=== PATIENT | female | born 1990 | race Native Hawaiian/Other Pacific Islander ===

== ENCOUNTER 2020-04-26 09:30 | Outpatient (RCR) | payer OTHER, SELFPAY ==
[2020-03-21 11:38] VITALS: BP 110/69; PULSE 65
[2020-04-05 12:41] VITALS: BP 119/72; PULSE 85
[2020-04-19 09:16] VITALS: BP 111/71; PULSE 99
[2020-04-26 10:10] VITALS: BP 122/72; PULSE 85
== END 2020-05-09 07:54 | disposition home or self-care (01) ==
LOC: ANHOBOP 09:30
PROVIDERS: PCP Physician Assistant; Visit Provider Obstetrics & Gynecology
DX: O26.893 Other specified pregnancy related conditions, third trimester (principal); R03.0 Elevated blood-pressure reading, without diagnosis of hypertension; Z3A.32 32 weeks gestation of pregnancy
CPT/HCPCS: 59025

== ENCOUNTER 2020-05-04 10:15 | Outpatient (CLI) | payer OTHER, SELFPAY ==
[2020-05-04 10:45] LABS: Hematocrit 33.2 % (37.0-47.0); Hemoglobin 10.7 g/dL (12.0-15.0); Mean Corpuscular HGB Conc 32.2 g/dl (32-36); Mean Corpuscular Hemoglobin 25.9 pg (26-34); Mean Corpuscular Volume 80.4 fl (80-100); Mean Platelet Volume 9.2 fl (7.4-10.4); Platelet Count Result 267 k/mm3 (150-375); Red Blood Count 4.13 M/mm3 (4.2-5.4); Red Cell Distribution Width 13.4 % (11.5-14.5); White Blood Count 8.4 K/mm3 (4.5-10.0)
[2020-05-05 11:13] LABS: Rapid Plasma Reagin Non-Reactive (NonReactive)
== END 2020-05-04 10:16 | disposition home or self-care (01) ==
PROVIDERS: PCP Physician Assistant; Visit Provider Obstetrics & Gynecology
DX: Z34.93 Encounter for supervision of normal pregnancy, unspecified, third trimester (principal); Z3A.00 Weeks of gestation of pregnancy not specified
CPT/HCPCS: 36415; 85027; 86592; 86850; 86900; 86901

== ENCOUNTER 2020-05-05 08:28 | Inpatient (IN) | payer OTHER, SELFPAY ==
--- NOTE | 2020-04-28 12:55 | PC.NURSE ---
VERIFIED WITH OR SCHEDULE AND PATIENT --C/S ON 05/05/20 AT 1030. HOME TSTATES SHE IS HAVING A TUBAL LIGATION WITH THE C/S--CONSENTS SIGNED PATIENT GIVEN REQUISITION FOR LAB DRAW ON 05/04/20
[2020-05-05] VITALS (45 sets, daily range): BP systolic 92–110; BP diastolic 48–69; PULSE 51–89; RESP 16–22; TEMP 36.4–37; O2SAT 80–100; BMI 40.7
[2020-05-05] MEDS: LACTATED RINGERS 1,000 ML 125 ML IV CONT ×2 (09:07→10:03)
--- NOTE | 2020-05-05 09:13 | LDADM ---
This patient, Kailey Gill, was admitted to Labor/Delivery/Recovery 120 on 05/05/20 at 08:28. Plans for labor, pain management and were discussed with patient. Patient/family oriented to hospital policies and general routines including ID bracelet, bed and alarms, visiting hours, pain management, procedures, bathroom and other care routines, personal items, smoking policy, room service/diet and guest tray routines, infant security routines, and visiting hours. Patient/Family are encouraged to report perceived risks to care and to ask questions if they do not understand what they are told or what they should do. See OBIX for further documentation.
--- NOTE | 2020-05-05 09:23 | WPDANESEPPF ---
Anes - Initial Pre Proc Eval Procedure: Operation Date: 05/05/20 10:30 Proposed Procedures p Repeat Section - Gordon Toscano MD Date/Time: 05/05/20 09:23 Surgeon: Gordon Toscano MD Pre Op Diagnosis: C/S Patient Data Age: 29 Gender: F Height: 1.7 m Weight: 118 kg Last Vital Signs Pulse 83 05/05/20 09:16 BP 110/60 05/05/20 09:16 Allergies Allergy/AdvReac Type Severity Reaction Status Date / Time acetaminophen [From Percocet] AdvReac Nausea and Verified 04/28/20 12:40 Vomiting oxycodone [From Percocet] AdvReac Nausea and Verified 04/28/20 12:40 Vomiting Home Medications Medication Instructions Recorded Confirmed Type labetalol 200 mg PO Q12H 04/28/20 04/28/20 History Patient hx anesthesia problems: none Family hx anesthesia problems: none PMFSH Past Medical History Medical History (Updated 05/03/20 @ 13:39 by Narendra Justice DO) Hypertension Surgical History Surgical History (Updated 05/03/20 @ 13:39 by Narendra Justice DO) History of x2 Family History Family History (Updated 04/28/20 @ 12:43 by Charlie Saunders RN) Grandparent Diabetes mellitus Cerebrovascular accident Heart attack Mother Diabetes mellitus Social History Social History Smoking status: Never smoker Substance use: never Spiritual care concerns: No Anes - Eval Final PreProcedure Day of Procedure 05/05/20 09:23 Patient weight: obese Heart: regular rate and rhythm Lungs: clear to auscultation and normal air movement Airway: Mallampati scale class II Neurological: alert and oriented Last oral intake: >/= 8 hours ASA classification: II Emergent: no Anesthetic plan: proceed Anesthesia type and monitoring: regional spinal Informed Consent: The patient's anesthetic plan and its attendant risks and benefits were discussed with the patient/family/POA. Questions were solicited and answers provided to the satisfaction of the patient/family/POA.
--- NOTE | 2020-05-05 10:31 | PM.IMHP ---
H&P: HPI History of Present Illness Date/Time: 05/05/20 10:31 Chief Complaint: Here for c section Narrative: 29 y/o at 39 weeks with prior , desiring repeat. Also would like permanent contraception. Chronic HTN, well-controlled. GBS neg. Review of Systems Review of Systems: All systems reviewed & are unremarkable except as noted in HPI and below PMFSH Past Medical History Medical History Hypertension Surgical History Surgical History History of x2 Family History Family History Grandparent Diabetes mellitus Cerebrovascular accident Heart attack Mother Diabetes mellitus Social History Social History Smoking status: Never smoker Substance use: never Spiritual care concerns: No Meds Home Medications and Allergies Home Medications Medication Instructions Recorded Confirmed Type labetalol 200 mg PO Q12H 04/28/20 04/28/20 History Allergies Allergy/AdvReac Type Severity Reaction Status Date / Time acetaminophen [From Percocet] AdvReac Nausea and Verified 04/28/20 12:40 Vomiting oxycodone [From Percocet] AdvReac Nausea and Verified 04/28/20 12:40 Vomiting Vital Signs Vital Signs - 24 hr 05/05/20 09:06 05/05/20 09:16 05/05/20 09:31 Temperature Pulse Rate 82 83 85 Blood Pressure 108/67 110/60 107/66 05/05/20 10:00 Temperature 36.6 C Pulse Rate Blood Pressure Exam Const: Orientation/consciousness: patient oriented x3 Other: Well-developed, well-nourished female in no acute distress. Neck: Thyroid: thyroid normal Lymphatic: no lymphadenopathy noted (in neck, axilla or inguinal nodes) Resp: Effort & Inspection: normal respiratory effort Auscultation: clear to auscultation bilaterally Cardio: Rate: regular rate Rhythm: regular rhythm Heart sounds: S1 normal heart sound present and S2 normal heart sound present GI: Other: ABD: Soft, nontender, nondistended, gravid. NST reactive. TOCO: no contractions. No guarding or rebound tenderness. No hepatosplenomegaly. : General: Yes no CVA tenderness Other: Cervix closed, thick. Back/Spine/Pelvis: Back: no CVA tenderness Skin: General skin exam: normal color and no rashes or lesions noted Neuro: General: patient oriented x3 Extrem: Other: Extremities: nontender with no edema Psych: Mental Status: mental status grossly normal Affect: normal affect Assessment and Plan Assessment and plan (1) History of : Code(s): Z98.891 - History of uterine scar from previous surgery Status: Inactive Assessment and Plan: 1) IUP at 39 weeks 2) Prior 3) Chronic HTN 4) Desired sterility Offered repeat . She understands there are temporary methods of contraception available to her. She understands that there are nonsurgical options as well as surgical options. She understands that tubal ligation will render her permanently sterile. She understands that there is a failure rate associated with tubal ligation, as well as an inherent ectopic gestation risk. Furthermore, she understands risks of surgery to include risks of anesthesia, risks of pain, infection, bleeding, blood products, thromboembolic phenomena and damage to adjacent structures such as bowel, bladder, ureters, blood vessels and nerves. She understands all these risks and elects to proceed with surgery. She has received the [employer]COG pamphlet on surgical sterilization. Plan repeat LTCS with concurrent bilateral tubal ligation. (2) Unwanted fertility: Code(s): Z30.09 - Encounter for other general counseling and advice on contraception Status: Acute (3) Chronic hypertension affecting : Code(s): O10.919 - Unspecified pre-existing hypertension
--- NOTE | 2020-05-05 10:35 | WPDHPUPDATE1 ---
History and Physical Update Update Date/Time: 05/05/20 10:35 History and Physical has been reviewed, including an updated exam of the patient. There are NO changes in the patient's condition. Risks, benefits, and alternatives have been discussed and questions answered. Patient agrees to proceed with procedure.
--- NOTE | 2020-05-05 11:37 | PM.OBPRVD ---
OB - Delivery Note Procedure Delivery date: 05/05/20 Procedure: Procedures Operation Date: 05/05/20 10:30 <No data on this case meets the specified criteria> Repeat low transverse delivery with bilateral tubal ligation Delivery monitor: external FHT and external uterine Route of delivery: (LTCS) Specimen: Yes (cord blood, segments of bilateral Fallopian tubes) Quantitative Blood Loss (ml): 705 Anesthesia type: Spinal Disposition: PACU Complications: None Narrative: The patient was taken to the operating room where she was prepared and draped in the usual sterile fashion in dorsal supine position with a leftward tilt. She received cefazolin preoperatively. Spinal anesthesia was found to be adequate. A Pfannenstiel skin incision was made along the previous scar line and was carried through to the underlying layer of the fascia. The fascia was incised in the midline and the incision was extended laterally. The fascia was dissected free of the underlying rectus muscles. The rectus muscles were in the midline. The peritoneum was identified, tented up and entered sharply. The peritoneal incision was extended superiorly and inferiorly with good visualization of the bladder. The bladder blade was placed. The vesicouterine peritoneum was identified, tented up and entered sharply. The incision was extended laterally and the bladder flap was developed. The bladder blade was replaced. The uterus was then incised sharply in a transverse fashion along the lower uterine segment. The incision was extended laterally. The infant's head was delivered atraumatically to the sterile field, followed by the body. The nose and mouth were bulb suctioned. After a delay, the cord was clamped and cut. The was handed off the field. Cord blood was collected. The placenta was removed manually and was passed off the field. The uterus was exteriorized and cleared of all clots and debris. The uterine incision was reapproximated using 0 Monocryl in a running, locked fashion. Excellent hemostasis resulted as did excellent reapproximation of the normal anatomy. The left fallopian tube was then identified by following it out to the fimbriated end. It was grasped in the midportion with a Teresa clamp and a loop of tube was ligated with a free tie of 0 plain gut. The tubal segment was then transected and the specimen was passed off to be sent to pathology. Hemostasis was excellent. Attention was turned to the right fallopian tube which was similarly identified, ligated and transected. Once again, excellent hemostasis resulted. The uterus was returned the abdomen. The pelvis was irrigated copiously with warmed normal saline. Rigorous hemostasis was assured. The fascial layer was reapproximated using 0 Vicryl in a running fashion. The skin was closed with a running, subcuticular stitch of 4 0 Vicryl. Dermaflex was applied externally. Sponge, lap, needle and instrument counts were correct. The patient was taken to the recovery room in stable condition. The went to the nursery in stable condition. I was present and scrubbed the entire procedure. Baby Date of : 05/05/20 Time of : 11:02 Weeks of gestation at delivery: 39 gender: Female Weight (pounds): 8 Weight (ounces): 7 presentation: vertex Placenta delivery description: Manual Removal and Normal Configuration cord vessel description: 3 Vessels and Delayed Cord Clamping score one minute: 9 score five minutes: 9
--- NOTE | 2020-05-05 11:40 | PM.OBDSVD ---
DS: Admitting Diagnosis Admitting Diagnosis Admitting Diagnosis: IUP at 39 weeks prior desired sterility chronic HTN DS: Discharge Diagnosis Discharge Diagnosis (1) Chronic hypertension affecting : Code(s): O10.919 - Unspecified pre-existing hypertension complicating , unspecified trimester Status: Acute (2) Unwanted fertility: Code(s): Z30.09 - Encounter for other general counseling and advice on contraception Status: Acute (3) History of : Code(s): Z98.891 - History of uterine scar from previous surgery Status: Chronic OB - DS: Summary OB Procedures : None OB Procedures Intrapartum: and Tubal ligation OB Procedures: : None Peripartum Data Procedures: Procedures Operation Date: 05/05/20 10:30 <No data on this case meets the specified criteria> Time Spent with Patient Time attestation: Total time spent providing and/or coordinating discharge services: Discharge Plan Discharge Attending physician on discharge: Gordon Toscano Discharging Clinician: Gordon Toscano Patient Disposition: Home, Self-Care Activity: may shower, may drive after 2 weeks and pelvic rest Diet: regular Wound Care Instructions: incision open to air Discharge Instructions: Call or return if temperature above 100.4? F, increased abdominal pain, increased vaginal bleeding or any new problems. Stand Alone Forms: General Discharge Information Follow-up/Referrals: Gordon Toscano MD [Physician] - 4 Weeks Discharge Medications: New hydrocodone-acetaminophen [[place]] 5-325 mg tablet 1 - 2 tablet PO Q6H PRN (Reason: pain) Qty: 30 RF: 0 ibuprofen 600 mg tablet 600 mg PO Q6H PRN (Reason: cramps) Qty: 30 RF: 0 ferrous sulfate 325 mg (65 mg iron) tablet,delayed release (DR/EC) 325 mg PO DAILY Qty: 30 RF: 0 Continued labetalol 200 mg Tablet 200 mg PO Q12H RF: 0 Date of admission: 05/05/20 08:28 Primary Care Provider: Karey,Marlene Admitting Provider: Gordon Toscano Attending physician on admission: Gordon Toscano Condition: Stable
[2020-05-05] MEDS: LORATADINE 10 MG TABLET PO (12:56)
[2020-05-05] MEDS: KETOROLAC 30 MG/ML VIAL (*BKC) IV PUSH (13:13)
[2020-05-05] MEDS: OXYTOCIN 30 UNITS/NS 500 ML 30 UNITS/500 ML BAG 125 UNITS IV CONT (13:37)
--- NOTE | 2020-05-05 13:56 | PC.NURSE ---
Patient transferred to post room #285 per stretcher from labor and delivery. Support person present. Oriented to unit, room, information board, rooming in, admission packet and security measures. Patient verbalizes understanding.
[2020-05-05] MEDS: IBUPROFEN 600 MG TABLET PO (19:53)
[2020-05-05] MEDS: DOCUSATE SODIUM 100 MG CAPSULE PO (19:53)
[2020-05-06] VITALS: BP 110/61; PULSE 69; RESP 18; TEMP 36.7; O2SAT 100
[2020-05-06] MEDS: HYDROcodone/acetaminophen (*CRX) 5-325 MG TABLET 1 TAB PO (04:45)
[2020-05-06] MEDS: IBUPROFEN 600 MG TABLET PO ×3 (04:46→19:29)
[2020-05-06 05:00] VITALS: BP 110/73; PULSE 69; RESP 18; TEMP 36.6; O2SAT 100
[2020-05-06 05:13] LABS: Basophils Percent Auto 0.3 % (0.2-1.2); Eosinophils Percent Auto 0.2 % (0-4.4); Hematocrit 25.3 % (37.0-47.0); Hemoglobin 8.2 g/dL (12.0-15.0); Immature Granulocyte Absolute 0.16 K/mm3 (0.00-0.031); Immature Granulocyte Percent A 1.3 % (0-0.5); Lymphocytes Absolute Auto 2.19 K/mm3 (0.9-3.2); Mean Corpuscular HGB Conc 32.4 g/dl (32-36); Mean Corpuscular Hemoglobin 25.9 pg (26-34); Mean Corpuscular Volume 79.8 fl (80-100); Mean Platelet Volume 9.7 fl (7.4-10.4); Monocytes Percent Auto 8.2 % (2.6-8.5); Neutrophils Absolute Auto 8.7 K/mm3 (1.3-6.7); Platelet Count Result 245 k/mm3 (150-375); Red Blood Count 3.17 M/mm3 (4.2-5.4); Red Cell Distribution Width 13.4 % (11.5-14.5); White Blood Count 12.1 K/mm3 (4.5-10.0)
[2020-05-06 08:05] VITALS: BP 111/65; PULSE 65; RESP 18; TEMP 36.5; O2SAT 100
[2020-05-06] MEDS: HYDROcodone/acetaminophen (*CRX) 10-325 MG TABLET 1 TAB PO ×5 (08:21→23:36)
[2020-05-06] MEDS: POLYSACCHARIDE IRON COMPLEX 150 MG CAPSULE PO ×2 (08:21→17:15)
[2020-05-06] MEDS: MULTIVIT/MIN/PREN/FOL AC/IRON TABLET 1 TAB PO (08:21)
[2020-05-06] MEDS: DOCUSATE SODIUM 100 MG CAPSULE PO ×2 (08:21→17:15)
--- NOTE | 2020-05-06 10:38 | WPDANLDNPN2 ---
Anes-Prog Note L&D-Neuraxial Date/Time: 05/06/20 10:38 Neuraxial medications: intrathecal PF morphine Opiod-related complaints: none Patient feedback: Patient satisfied with post-operative pain management.
--- NOTE | 2020-05-06 10:38 | WPDANLDPN2 ---
Anes-Prog Note L&D Date/Time: 05/06/20 10:38 Comfortable throughout: labor and delivery Neuraxial method: spinal Epidural/Spinal procedure site: clean & non-tender Neuro status: Neuro function grossly intact. Cardiovascular status: normal Respiratory status: normal Airway patency: baseline Mental status: baseline Post-Op hydration status: normal Vital Signs: Last Vital Signs Temp 36.6 C 05/06/20 05:00 Pulse 69 05/06/20 05:00 Resp 18 05/06/20 05:00 BP 110/73 05/06/20 05:00 Pulse Ox 100 05/06/20 05:00 Pain score (VAS): 0 I/O: Intake & Output 05/05/20 05/06/20 05/06/20 23:59 07:59 15:59 Intake Total 2500 800 Output Total 125 1600 800 Balance 6509 -800 -800 Post-procedural complaints: none Patient feedback: Patient satisfied with anesthetic care.
--- NOTE | 2020-05-06 13:40 | PM.OBPNVD ---
OB - PN: Subj Subjective Date/time seen: 05/06/20 13:40 Narrative: Pain OK. Tolerating diet. She would like to go home tomorrow. OB - PN: Obj Data Labs CBC & Chem 7: 05/06/20 04:40 Labs: Laboratory Results - last 24 hr 05/06/20 04:40 WBC 12.1 H RBC 3.17 L Hgb 8.2 L Hct 25.3 L MCV 79.8 L MCH 25.9 L MCHC 32.4 RDW 13.4 Plt Count 245 MPV 9.7 Immature Gran % (Auto) 1.3 H Neut % (Auto) 72.0 Lymph % (Auto) 18.0 L Randolph % (Auto) 8.2 Eos % (Auto) 0.2 Baso % (Auto) 0.3 Lymph # (Auto) 2.19 Randolph # (Auto) 1.0 H Eos # (Auto) 0.0 Baso # (Auto) 0.0 Abs Immat Gran (auto) 0.16 H Absolute Neuts (auto) 8.7 H Absolute Nucleated RBC 0.0 Nucleated RBC % 0.0 OB - PN A/P Plan Comments: A: POD#1, doing well. P: Routine care. Plan home tomorrow. Exam Narrative: Exam Narrative: AVSS I/O OK ABD soft, nontender, fundus firm. Incision c/d/i. EXT nontender
[2020-05-06] MEDS: SIMETHICONE 80 MG TAB.CHEW PO (17:15)
[2020-05-06 19:30] VITALS: BP 133/76; PULSE 85; RESP 16; TEMP 36.4; O2SAT 100
[2020-05-06 21:00] VITALS: BP 123/80; PULSE 89
[2020-05-06 21:01] VITALS: PULSE 89
--- NOTE | 2020-05-06 21:04 | PC.NURSE ---
Patient to view the discharge video Mother & Baby Care, The First Two Weeks online, instructions and handout given. Patient was given the opportunity and encouraged to ask questions. Patient verbalized understanding of information shared and has been given the mother/baby guide for home reference.
[2020-05-07] MEDS: IBUPROFEN 600 MG TABLET PO ×2 (01:39→07:54)
[2020-05-07] MEDS: DOCUSATE SODIUM 100 MG CAPSULE PO (07:53)
[2020-05-07] MEDS: HYDROcodone/acetaminophen (*CRX) 10-325 MG TABLET 1 TAB PO ×2 (07:53→12:01)
[2020-05-07] MEDS: SIMETHICONE 80 MG TAB.CHEW PO (07:56)
[2020-05-07] MEDS: POLYSACCHARIDE IRON COMPLEX 150 MG CAPSULE PO (07:56)
[2020-05-07] MEDS: LORATADINE 10 MG TABLET PO (07:56)
[2020-05-07] MEDS: MULTIVIT/MIN/PREN/FOL AC/IRON TABLET 1 TAB PO (07:57)
[2020-05-07 07:58] VITALS: BP 138/90; PULSE 79; RESP 18; TEMP 36.8
[2020-05-07 09:07] VITALS: PULSE 70
[2020-05-07] MEDS: LABETALOL HCL 100 MG TABLET 200 MG PO (09:07)
[2020-05-07 10:05] VITALS: BP 116/77
[2020-05-10 11:23] VITALS: BP 130/82; PULSE 85; RESP 20; TEMP 37.3; O2SAT 100
== END 2020-05-07 12:08 | disposition home or self-care (01) | DRG 540 ==
LOC: ANHLDR 11:41 → ANHOB2 14:02
PROVIDERS: Admitting Provider Obstetrics & Gynecology; PCP Physician Assistant; Visit Provider Obstetrics & Gynecology
PROC: 10D00Z1 Extraction of Products of Conception, Low, Open Approach (ICD-10-PCS; CPT 59514; principal; 2020-05-05 10:30)
DX: O34.211 Maternal care for low transverse scar from previous cesarean delivery (principal); Z30.2 Encounter for sterilization; O10.92 Unspecified pre-existing hypertension complicating childbirth; Z3A.39 39 weeks gestation of pregnancy; Z37.0 Single live birth
CPT/HCPCS: 36415; 85025; 88302; A9270; J0131; J1100; J1885; J2274; J2405; J2590; J7120

== ENCOUNTER 2023-09-11 13:39 | Outpatient (CLI) | payer OTHER, SELFPAY ==
--- NOTE | ~2023-09-11 | US_ITS ---
EXAMINATION: US venous doppler [facility] DATE: 09/11/2023 14:32 INDICATION: Left lower limb edema. TECHNIQUE: Grayscale ultrasound images without and with compression and Doppler ultrasound images of the left lower extremity veins were obtained. COMPARISON: None. FINDINGS: The visualized portions of left common femoral vein, profunda (deep) femoral vein, femoral vein, popl iteal vein, peroneal veins, posterior tibial veins, and greater saphenous vein outflow are patent. IMPRESSION: 1. No deep venous thrombosis. Reviewed, dictated and finalized at location A.
== END 2023-09-11 13:40 | disposition home or self-care (01) ==
LOC: ANHIMG 13:41
PROVIDERS: PCP Physician Assistant; Visit Provider Physician Assistant
DX: R60.0 Localized edema (principal)
CPT/HCPCS: 93971